=== PATIENT | male | born 1945 | race Caucasian/White ===

== ENCOUNTER → 2017-03-10 | Outpatient (CLI) | payer OTHER ==
--- NOTE | 2017-03-10 12:08 | CT ---
CT LUMBAR SPINE WITHOUT CLINICAL HISTORY: 72-year-old male with chronic low back pain and prior surgery. COMPARISON: None. TECHNIQUE: Multiple, noncontrasted axial CT images were obtained from the thoracolumbar junction to the sacrum and reconstructed in the sagittal and coronal planes. FINDINGS: The most caudad, fully-formed intervertebral disc will be labeled L5-S1 for the purpose of this dictation. Straightening of lumbar lordosis as imaged. Interbody cages are present at L5-S1 with mild subsidence, superior slightly greater than inferior, bilaterally. Multilevel degenerative justice e and spondyloarthropathy with near-complete loss of disk space L3-L4. T12-L1: No significant central canal or neural foraminal stenosis. L1-L2: No significant central canal or neural foraminal stenosis. Moderate facet arthropathy and disc bulge. L2-L3: Disk bulge with moderate to severe facet arthropathy with central canal measuring 10.9 mm with out significant neural foraminal stenosis. L3-L4: There complete loss of disc space with disc bulge and moderate to severe facet arthropathy. No central canal or neural foraminal stenosis. L4-L5: Disc bulge with severe facet hypertrophy and thickened ligamentum flavum narrowing canal to 8. 3 mm with mild bilateral neural foraminal stenosis. L5-S1: No significant central canal or neural foraminal stenosis. Severe facet hypertrophy with arthr odesis of the posterior elements. IMPRESSION: 1. No acute fracture malalignment. 2. Interbody cages L5-S1 without significant subsidence. 3. Multilevel degenerative change and spondyloarthropathy as described on a level by level basis abov e, most severe at L4-L5. Reported By:
== END | disposition home or self-care (01) | DRG 552 ==
LOC: RAD 11:08
PROVIDERS: ATTEND Orthopaedic Surgery Orthopaedic Surgery of the Spine
DX: M54.5 Low back pain (principal)
CPT/HCPCS: 72131